=== PATIENT | female | born 1980 | race Caucasian/White ===

== ENCOUNTER 2017-02-13 08:07 | Inpatient (IN) | payer OTHER ==
[2017-02-13 08:28] LABS: HCT 33.5 % (37.0-47.0); HGB 10.6 g/dl (12.5-16.0); MCH 28.2 pg (25.0-31.0); MCHC 31.6 g/dL (32.0-36.0); MCV 89.1 fL (78.0-100.0); MPV 10.2 fL (6.0-9.5); RBC 3.76 M/uL (4.20-5.40); WBC 8.1 K/uL (4.0-10.5)
[2017-02-13 10:54] LABS: BILIRUBIN NEGATIVE (NEGATIVE); BLOOD NEGATIVE Ery/uL (NEGATIVE); CLARITY CLEAR (CLEAR); COLOR YELLOW (YELLOW); GLUCOSE (U) NORMAL (NORMAL); KETONE (U) NEGATIVE (NEGATIVE); LEUKOCYTES NEGATIVE Leu/uL (NEGATIVE); NITRITE NEGATIVE (NEGATIVE); PROTEIN NEGATIVE (NEGATIVE); UROBILINOGEN 0.2 mg/dL (0.2-1.0); pH 7.5 (5.0-9.0)
[2017-02-14 06:34] LABS: HCT 27.3 % (37.0-47.0); HGB 8.7 g/dl (12.5-16.0); MCH 28.8 pg (25.0-31.0); MCHC 31.9 g/dL (32.0-36.0); MCV 90.4 fL (78.0-100.0); MPV 9.9 fL (6.0-9.5); RBC 3.02 M/uL (4.20-5.40); RDW 15.7 % (11.5-14.0)
== END 2017-02-15 14:00 | disposition home or self-care (01) | DRG 765 ==
LOC: FOB 08:07
PROVIDERS: ADMIT Obstetrics & Gynecology
PROC: 10D00Z1 Extraction of Products of Conception, Low, Open Approach (ICD-10-PCS; principal; 2017-02-13 08:30)
DX: O34.211 Maternal care for low transverse scar from previous cesarean delivery (principal); D62 Acute posthemorrhagic anemia; N85.8 Other specified noninflammatory disorders of uterus; Z3A.38 38 weeks gestation of pregnancy; Z37.0 Single live birth; O09.523 Supervision of elderly multigravida, third trimester; D64.9 Anemia, unspecified; O99.02 Anemia complicating childbirth; O28.3 Abnormal ultrasonic finding on antenatal screening of mother; R87.810 Cervical high risk human papillomavirus (HPV) DNA test positive
CPT/HCPCS: 36415; 81003; 88307; J0690; J1100; J1885; J2274; J2300; J2405; J2916; J3010